=== PATIENT | female | born 1975 | race Caucasian/White ===

== ENCOUNTER 2016-10-11 22:01 | Emergency (ER) | payer BC ==
[2016-10-11 22:09] VITALS: RESP 16; TEMP 98.6
[2016-10-11] MEDS ORDERED: NS 1,000 ML IV ONE (22:30)
--- NOTE | 2016-10-11 22:35 | CPEKG ---
Heart Rate: 83 RR Interval: 723 P-R Interval: 160 QRSD Interval: 90 QT Interval: 364 QTC Interval: 428 P [place]: 74 QRS [place]: 79 T Wave [place]: 48 EKG Severity - NORMAL ECG - EKG Impression: SINUS RHYTHM Electronically Signed By: Shania Louis 12-Oct-2016 06:52:15
--- NOTE | 2016-10-11 22:36 | EDPHY ---
H & P Stated Complaint: pain with deep breathing under left breast x1 day Source: Patient Exam Limitations: No limitations - Personal History LMP (Females 10-55): 8-14 Days Ago Current Tetanus Diphtheria and Acellular Pertussis (TDAP): Yes Tetanus Vaccine Date: 2007 - Medical/Surgical History Hx Asthma: No Hx Chronic Respiratory Disease: No Hx Diabetes: No Hx Cardiac Disease: No Hx Renal Disease: No Hx Cirrhosis: No Hx Alcoholism: No Hx HIV/AIDS: No Hx Splenectomy or Spleen Trauma: No Other PMH: endometriosis, c section - Social History Smoking Status: Former smoker HPI/ROS: CHIEF COMPLAINT: Chest Pain HISTORY OF PRESENT ILLNESS: Complains of left anterior chest wall pain that started when she awoke this morning. [id number] pain. Constant throughout the day. Described as a discomfort and not an actual pain. Described as moderate. Worse with inspiration. No worse with palpation. Occasionally radiates to the left side of the back. No fever or chills. No cough. No lower extremity erythema edema or pain. She did have a recent upper respiratory and lower respiratory infection over the past 10 days. 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 No history of venous thrombolic event. No other associated complaints or modifying factors. No history of hypertension, diabetes, dyslipidemia coronary artery disease. Nonsmoker. FAMILY HISTORY CARDIAC: Denies PRIOR CARDIAC WORKUP: None REVIEW OF SYSTEMS: Ten systems reviewed and are negative unless otherwise noted in the HPI EXAMINATION: General Appearance: Alert, no distress Head: normocephalic, atraumatic Eyes: Pupils equal and round, no conjunctival pallor or injection ENT, Mouth: Mucous membranes moist Neck: Normal inspection, supple, non-tender Respiratory: Lungs are clear to auscultation. No wheezing, rhonchi or crackles. Cardiovascular: Regular rate and rhythm. No murmur. Pulses intact distally. Gastrointestinal: Abdomen is soft and nontender Back: non-tender, no bony abnormalities Neurological: A&O, nonfocal, normal gait. GCS 15. Skin: Warm and dry, no rash. No petechiae or purpura. Extremities: Nontender, no pedal edema Psychiatric: Mood and affect normal DIFFERENTIAL DIAGNOSES: Including but not limited to in no particular order: Acute Chest Pain, ACS, Stable Angina, Pneumonia, PE, duodenitis, gastritis, esophagitis, GERD MDM: 10:30 p.m. Left-sided pain over the anterior chest wall. It does radiate to the back at times. It is also pleuritic. Vital signs were well within normal limits. No risk factors for coronary artery disease. She does have risk factors for DVT including multiple recent flights to [facility]. Although I have a low suspicion for PE, I have ordered cardiac laboratory studies, EKG, chest x-ray and D- dimer. She is resting comfortably in no acute distress. 11:10 p.m. Chest x-ray as interpreted by me is unremarkable for any acute findings. Laboratory studies are all negative, including a negative D-dimer and negative troponin. Troponin is sensitive as her pain has been present for nearly 18 hours without resolution. I will discuss case with Dr. Louis. 11:25 p.m. I have discussed the case with Dr. Louis. She agrees the patient is stable for discharge home. I discussed this with the patient she is comfortable with discharge home. I suspect this is pleurisy versus costochondritis. I did discuss with the patient the possibility that this is an early appearance of shingles. While I do not appreciate any rash, and there is no tenderness to palpation of the skin, there is a chance that this is a prodrome. I informed her that she should monitor the area closely for any skin changes. She is to follow up with primary care physician and to continue anti-inflammatories as needed. Return here for any change in the pain, exertional pain or shortness of breath. She is comfortable with this plan and discharged home stable condition. EKG: Interpreted by Dr. Louis SUPERVISION: Patient was evaluated in conjunction with the supervising physician. Please see their note for details. (Jeferson Goodman) Constitutional: Initial Vital Signs Temperature (C) 37 C 10/11/16 22:05 Heart Rate 88 10/11/16 22:05 Respiratory Rate 16 10/11/16 22:05 Blood Pressure 125/83 H 10/11/16 22:05 O2 Sat (%) 99 10/11/16 22:05 O2 Delivery Mode Room Air Allergies/Adverse Reactions: codeine Allergy (Verified 10/11/16 22:05) morphine Allergy (Verified 10/11/16 22:05) Home Medications: Medication Instructions Recorded Sameer 10/11/16 Medical Decision Making - Diagnostics EKG Interpretation: EKG: Complete interpretation has been separately recorded in the Trac[facility] archive. Summary impression: Normal sinus rhythm (Shania Louis) ED Course/Re-evaluation: PHYSICIAN DOCUMENTATION: The patient was evaluated and managed by the Physician Vocational Training Director. My co- signature indicates that I have reviewed this chart and I agree with the findings and plan of care as documented. I am the secondary supervising physician. (Shania Louis) - Data Points Laboratory Results: Laboratory Results 10/11/16 22:32 10/11/16 22:32 10/11/16 10/11/16 10/11/16 22:32 22:32 22:32 WBC RBC Hgb Hct MCV MCH MCHC RDW Plt Count MPV Neut % (Auto) Lymph % (Auto) [place] % (Auto) Eos % (Auto) Baso % (Auto) Nucleat RBC Rel Count Absolute Neuts (auto) Absolute Lymphs (auto) Absolute Monos (auto) Absolute Eos (auto) Absolute Basos (auto) Absolute Nucleated RBC Immature Gran % Immature Gran # D-Dimer 0.28 ug/mLFEU ug/mLFEU (0.00-0.50) Sodium 134 mEq/L mEq/L (134-144) Potassium 3.6 mEq/L mEq/L (3.5-5.2) Chloride 102 mEq/L mEq/L (97-110) Carbon Dioxide 25 mEq/l mEq/l (22-31) Anion Gap 7 mEq/L L mEq/L (8-16) BUN 20 mg/dL mg/dL (7-23) Creatinine 0.8 mg/dL mg/dL (0.6-1.0) Estimated GFR > 60 Glucose 81 mg/dL mg/dL (70-100) Calcium 9.4 mg/dL mg/dL (8.5-10.4) Troponin I < 0.012 ng/mL ng/mL (0-0.034) Lipase 111.0 IU/L IU/L (23-300) Beta HCG, Qual NEGATIVE 10/11/16 22:32 WBC 5.34 10^3/uL 10^3/uL (3.80-9.50) RBC 4.61 10^6/uL 10^6/uL (4.18-5.33) Hgb 11.9 g/dL L g/dL (12.6-16.3) Hct 37.7 % L % (38.0-47.0) MCV 81.8 fL fL (81.5-99.8) MCH 25.8 pg L pg (27.9-34.1) MCHC 31.6 g/dL L g/dL (32.4-36.7) RDW 14.8 % % (11.5-15.2) Plt Count 243 10^3/uL 10^3/uL (150-400) MPV 9.9 fL fL (8.7-11.7) Neut % (Auto) 47.4 % % (39.3-74.2) Lymph % (Auto) 38.8 % % (15.0-45.0) [place]ill % (Auto) 9.7 % % (4.5-13.0) Eos % (Auto) 2.6 % % (0.6-7.6) Baso % (Auto) 1.3 % % (0.3-1.7) Nucleat RBC Rel Count 0.0 % % (0.0-0.2) Absolute Neuts (auto) 2.53 10^3/uL 10^3/uL (1.70-6.50) Absolute Lymphs (auto) 2.07 10^3/uL 10^3/uL (1.00-3.00) Absolute Monos (auto) 0.52 10^3/uL 10^3/uL (0.30-0.80) Absolute Eos (auto) 0.14 10^3/uL 10^3/uL (0.03-0.40) Absolute Basos (auto) 0.07 10^3/uL 10^3/uL (0.02-0.10) Absolute Nucleated RBC 0.00 10^3/uL 10^3/uL (0-0.01) Immature Gran % 0.2 % % (0.0-1.1) Immature Gran # 0.01 10^3/uL 10^3/uL (0.00-0.10) D-Dimer Sodium Potassium Chloride Carbon Dioxide Anion Gap BUN Creatinine Estimated GFR Glucose Calcium Troponin I Lipase Beta HCG, Qual Medications Given: Discontinued Medications Sodium Chloride (Ns) 1,000 mls @ 0 mls/hr IV ONCE ONE; Wide Open PRN Reason: Protocol Stop: 10/11/16 22:31 Last Admin: 10/11/16 22:51 Dose: 1,000 mls Ketorolac Tromethamine (Toradol) 30 mg IVP EDNOW ONE Stop: 10/11/16 23:14 Last Admin: 10/11/16 23:25 Dose: Not Given Departure - Departure Disposition: Home, Routine, Self-Care Clinical Impression: Chest wall pain Condition: Good Instructions: Pleurisy (ED), Chest Wall Pain (ED) Additional Instructions: Anti-inflammatories as discussed as needed. Follow up with primary care physician for further care. Return here for any exertional chest pain, shortness of breath or rash Referrals: NONE *PRIMARY CARE P,. [Primary Care Provider] - As per Instructions Radha Major, [Doctor of Osteopathy] - As per Instructions
[2016-10-11 22:41] LABS: % IMMATURE GRANULYOCYTES 0.2 % (0.0-1.1); ABSOLUTE IMMATURE GRANULOCYTES 0.01 10^3/uL (0.00-0.10); ADD DIFF? NO; ADD MORPH? NO; ADD SCAN? NO; ATYPICAL LYMPHOCYTE FLAG 30 (0-99); FRAGMENT RBC FLAG 0 (0-99); HEMATOCRIT 37.7 % (38.0-47.0); HEMOGLOBIN 11.9 g/dL (12.6-16.3); LEFT SHIFT FLG 0 (0-99); LIPEMIA HEMOLYSIS FLAG 80 (0-99); MEAN CELL HEMOGLOBIN 25.8 pg (27.9-34.1); MEAN CELL HEMOGLOBIN CONCENTR. 31.6 g/dL (32.4-36.7); MEAN CELL VOLUME 81.8 fL (81.5-99.8); MEAN PLATELET VOLUME 9.9 fL (8.7-11.7); PLATELET CLUMPS FLAG 0 (0-99); PLATELET COUNT 243 10^3/uL (150-400); RED BLOOD CELL COUNT 4.61 10^6/uL (4.18-5.33); RED CELL DISTRIBUTION WIDTH 14.8 % (11.5-15.2)
[2016-10-11 22:51] LABS: ANION GAP 7 mEq/L (8-16); CALCIUM 9.4 mg/dL (8.5-10.4); CARBON DIOXIDE 25 mEq/l (22-31); CHLORIDE 102 mEq/L (97-110); CREATININE 0.8 mg/dL (0.6-1.0); GLOMERULAR FILTRATION RATE > 60; GLUCOSE 81 mg/dL (70-100); POTASSIUM 3.6 mEq/L (3.5-5.2); SODIUM 134 mEq/L (134-144)
[2016-10-11 23:03] LABS: TROPONIN I < 0.012 ng/mL (0-0.034)
[2016-10-11] MEDS ORDERED: KETOROLAC 30 MG/1 ML SDV IVP ONE (23:13)
[2016-10-11 23:36] VITALS: BP 120/81; PULSE 80; O2SAT 98
== END 2016-10-11 23:35 | disposition home or self-care (01) ==
DX: R07.89 Other chest pain (principal); Z87.891 Personal history of nicotine dependence
CPT/HCPCS: J1885

== ENCOUNTER → 2016-12-27 | Outpatient (CLI) | payer BC | LOC: FIMAGING 09:46 | PROVIDERS: ATTEND Obstetrics & Gynecology | DX: Z12.31 Encounter for screening mammogram for malignant neoplasm of breast (principal); N83.01 Follicular cyst of right ovary; N84.0 Polyp of corpus uteri | CPT/HCPCS: G0202 ==

== ENCOUNTER → 2017-04-11 | Outpatient (CLI) | payer BC | LOC: FIMAGING 07:34 | PROVIDERS: ATTEND Registered Nurse | DX: R10.11 Right upper quadrant pain (principal) ==

== ENCOUNTER → 2017-05-18 | Outpatient (CLI) | payer OTHER | LOC: FIMAGING 10:58 | PROVIDERS: ATTEND Registered Nurse | DX: R09.1 Pleurisy (principal) ==

== ENCOUNTER 2017-05-30 21:17 | Emergency (ER) | payer OTHER ==
[2017-05-30 21:29] VITALS: RESP 16
--- NOTE | 2017-05-30 21:43 | CPEKG ---
Heart Rate: 81 RR Interval: 741 P-R Interval: 156 QRSD Interval: 90 QT Interval: 372 QTC Interval: 432 P [place]: 76 QRS [place]: 85 T Wave [place]: 59 EKG Severity - NORMAL ECG - EKG Impression: SINUS RHYTHM Electronically Signed By: Meka Roach 30-May-2017 23:19:28
--- NOTE | 2017-05-30 22:04 | EDPHY ---
H & P Stated Complaint: c/o L sided cp x 5 days, tonight worse, dx with pleuritis early may HPI/ROS: CHIEF COMPLAINT: Chest pain HISTORY OF PRESENT ILLNESS: The patient is a 41 y/o female complaining of several weeks of pleuritic pain that acutely worsened yesterday. She developed what she describes as pleuritic chest pain around New Years. She then took a trip to [facility] and returned on 03/25, about 2 weeks ago. She continued to have this pain upon her return here and was evaluated by her PCP for it. She had a normal chest x-ray at that time and was diagnosed with pleuritis and was directed to use NSAIDs for inflammation. The patient was only able to take a few doses of ibuprofen before developing stomach discomfort prompting her to stop that treatment. Regardless, her pain improved by the end of last week. Yesterday she develop sharp intermittent pain on the left side of her chest that has intensified and is now also present on the right side of her chest. She cannot elicit this pain by breathing, movement, or palpation. She took Maalox on her way to the ED thinking it could be heart burn;she has had no improvement thus far. She denies dyspnea, leg pain or swelling, recent illness or trauma. She is not on hormonal mediations and has no personal history of blood clots or cardiac disease. REVIEW OF SYSTEMS: A ten point review of systems was performed and is negative with the exception of the items mentioned in the HPI. Past medical history: Endometriosis Past surgical history: Family history: Mother recently suddenly at age 69 from possible stroke or MS. Father has stent of some sort. Social history: Nonsmoker. PCP: Jazz Ho at [facility] General Appearance: Alert. Vital signs reviewed. Eyes: Pupils equal and round, no conjunctival injection, no discharge. Anicteric. ENT, Mouth: Mucous membranes are moist, no oropharyngeal erythema or edema. Neck: No lymphadenopathy, supple. Respiratory: Lungs are clear to auscultation; no wheezes, rales, or rhonchi. Cardiovascular: Regular rate and rhythm; no murmur, rub, or gallop. Thorax: Nontender to palpation. No crepitus. Gastrointestinal: Abdomen is soft and nontender, no masses or organomegaly, bowel sounds normal. Skin: Warm and dry, no rashes on exposed skin, normal color. Specifically, no thoracic vesicular lesions to suggest shingles. Back: Nontender to palpation over the thoracolumbar spine. No CVAT. Extremities: No lower extremity edema, no calf tenderness or swelling. Neurological: Alert and oriented. Moving all four extremities easily and equally. Psychiatric: Normal affect. - Personal History Tetanus Vaccine Date: 2007 - Medical/Surgical History Hx Asthma: No Hx Chronic Respiratory Disease: No Hx Diabetes: No Hx Cardiac Disease: No Hx Renal Disease: No Hx Cirrhosis: No Hx Alcoholism: No Hx HIV/AIDS: No Hx Splenectomy or Spleen Trauma: No Other PMH: endometriosis, c section, laparotomy - Social History Smoking Status: Former smoker Constitutional: Initial Vital Signs Temperature (C) 36.4 C 05/30/17 21:26 Heart Rate 80 05/30/17 21:26 Respiratory Rate 16 05/30/17 21:26 Blood Pressure 127/79 H 05/30/17 21:26 O2 Sat (%) 98 05/30/17 21:26 O2 Delivery Mode Room Air Allergies/Adverse Reactions: codeine Allergy (Verified 05/30/17 21:29) morphine Allergy (Verified 05/30/17 21:29) shellfish derived Allergy (Verified 05/30/17 21:29) Home Medications: Medication Instructions Recorded Maalox Maximum Strength Suspension 05/30/17 Medical Decision Making ED Course/Re-evaluation: This is a 41 y/o female with recent diagnosis of pleuritis for symptoms that began about 3 weeks ago prior to a trip to [facility]. She was improving through last week until developing intermittent sharp chest pain yesterday that has continued today. Her exam is unremarkable. I do not appreciate a rub on auscultation. Her PERC score is zero indicating low risk for PE and a d-dimer is not indicated. We will not repeat her recent chest x-ray while here either. Troponin on 05/18/17 was normal. Plan for IV, labs, EKG. The 12 lead EKG was interpreted by myself. Sinus mechanism rate 81. See hard copy and/or "tracemaster" electronic copy for interpretation. Reassessed patient and discussed work up. Her labs and EKG are unremarkable. She has a PCP appointment scheduled for tomorrow to discuss these symptoms. She feels safe going home and following up with her PCP as planned. Recommended Tylenol or Aleve for pain as directed--she has taken Aleve successfully in the past. Return precautions discussed. She is comfortable with this plan. Differential Diagnosis: Shortness of breath/chest pain including but not limited to pulmonary infectious process, ACS, COPD, asthma, shingles, pericarditis, pleurisy, pulmonary embolus and congestive heart failure. - Data Points Laboratory Results: Laboratory Results 05/30/17 21:47 Departure - Departure Disposition: Home, Routine, Self-Care Clinical Impression: Pleurisy Chest pain Qualifiers: Chest pain type: pleurodynia Qualified Code(s): R07.81 - Pleurodynia Condition: Good Instructions: Chest Pain (ED) Additional Instructions: 1. Follow up with your primary care provider as planned tomorrow. 2. Use Tylenol and Naproxen as directed for pain and inflammation. 3. Return to the ED for worsening of condition. Adult Pain & Fever Control: We recommend Acetaminophen (Tylenol) and Ibuprofen (Motrin,Advil) for pain and fever control. When fever is high or pain severe, both drugs can be used at the same time, but at different intervals. Please note the time differences. Your dose is: Acetaminophen 650 mg every 4 to 6 hours Naproxen Sodium 550mg (Aleve) mg every 12 hours. Note: do not take Acetaminophen with Hydrocodone (Vicodin, Lortab) or Oycodone (Percocet). These medications also contain Acetaminophen. No more than 3000mg of Acetaminophen should be taken in 24 hours (for an adult). Referrals: Tameka Shirley RN, [employer]UR[employer]IATION COUNSELOR [Primary Care Provider] - As per Instructions Report Scribed for: Meka Roach Report Scribed by: Jackelyn Virgen Date of Report: 05/30/17 Time of Report: 22:27 Physician Review and Approval Statement: 05/30/17 22:04 Portions of this note were transcribed by the emergency medicine medical director. I, Dr. Meka Roach, personally performed the history, physical exam, and medical decision- making; and confirmed the accuracy of the information in the transcribed note.
[2017-05-30 22:59] LABS: PLATELET COUNT 292 10^3/uL (150-400)
[2017-05-30 23:09] VITALS: BP 101/50; PULSE 75; TEMP 97.7; O2SAT 97
== END 2017-05-30 23:07 | disposition home or self-care (01) ==
DX: R09.1 Pleurisy (principal); Z87.891 Personal history of nicotine dependence

== ENCOUNTER → 2017-06-08 | Outpatient (CLI) | payer OTHER ==
[~2017-06-08] MED LIST: IOPAMIDOL (ISOVUE 370) 100 ML BTL IV ONE
== END ==
LOC: FIMAGING 10:15
PROVIDERS: ATTEND Registered Nurse
DX: R91.8 Other nonspecific abnormal finding of lung field (principal)
CPT/HCPCS: Q9967

== ENCOUNTER → 2018-01-15 | Outpatient (CLI) | payer OTHER | LOC: FIMAGING 07:38 | PROVIDERS: ATTEND Obstetrics & Gynecology Gynecology | DX: Z12.31 Encounter for screening mammogram for malignant neoplasm of breast (principal); Z80.3 Family history of malignant neoplasm of breast ==

== ENCOUNTER → 2018-04-13 | Outpatient (CLI) | payer OTHER | LOC: FIMAGING 13:28 | PROVIDERS: ATTEND Physician Assistant Medical | DX: N60.02 Solitary cyst of left breast (principal) ==